=== PATIENT | female | born 1950 | race Caucasian/White ===

== ENCOUNTER 2018-02-04 00:37 | Observation (INO) | payer OTHER, MEDICARE ==
[~2018-02-04] VITALS: Ht 162.6 cm; Wt 87.8 kg
[2018-02-04] MEDS ORDERED: SODIUM CHLORIDE FLUSH 10ML SYR IVF ONE (01:00)
[2018-02-04] MEDS ORDERED: KETOROLAC 30 MG/1 ML IVPush ONE (01:00)
[2018-02-04] MEDS ORDERED: ONDANSETRON 2MG/ML, 2ML IVPush ONE (01:00)
[2018-02-04 01:01] LABS: BASOPHILS # (AUTO) 0.06 x10^3/uL (0-0.1); BASOPHILS % (AUTO) 1 % (0-1); EOSINOPHILS # (AUTO) 0.05 x10^3/uL (0-0.4); EOSINOPHILS % (AUTO) 0 % (1-7); LYMPHOCYTES # (AUTO) 1.78 x10^3/uL (1-3.4); LYMPHOCYTES % (AUTO) 14 % (22-44); MD NO; MEAN CORPUSCULAR HEMOGLOBIN 26.9 pg (27.0-34.8); MEAN CORPUSCULAR HGB CONC 33.8 g/dL (32.4-35.8); MEAN CORPUSCULAR VOLUME 79.5 fL (80-100); MEAN PLATELET VOLUME 9.5 fL (7.4-10.4); MONOCYTES # (AUTO) 0.42 x10^3/uL (0.2-0.8); MONOCYTES % (AUTO) 3 % (2-9); NEUTROPHILS # (AUTO) 10.67 x10^3/uL (1.8-6.8); NEUTROPHILS % (AUTO) 82 % (42-75); PLATELET COUNT 214 x10^3/uL (130-400); RED BLOOD COUNT 5.46 x10^6/uL (3.82-5.3); RED CELL DISTRIBUTION WIDTH 16.6 % (9.6-15.2)
[2018-02-04] MEDS ORDERED: KETOROLAC 30 MG/1 ML ONE (01:02)
[2018-02-04] MEDS ORDERED: ONDANSETRON 2MG/ML, 2ML ONE (01:02)
[2018-02-04] MEDS ORDERED: MORPHINE SULFATE 4 MG/ML, 1ML ONE ×2 (01:02→02:26)
[2018-02-04] MEDS: MORPHINE SULFATE 4 MG/ML, 1ML IVPush PRN ×2 (01:06→02:29)
[2018-02-04 01:12] LABS: ALANINE AMINOTRANSFERASE 25 U/L (12-78); ALBUMIN 3.6 g/dL (3.4-5.0); ANION GAP 10 mmol/L (5-15); CALCIUM 8.6 mg/dL (8.5-10.1); CHLORIDE 105 mmol/L (98-107); CREATININE 1.17 mg/dL (0.55-1.02)
[2018-02-04 01:15] LABS: ALKALINE PHOSPHATASE 122 U/L (45-117); BILIRUBIN,TOTAL 0.3 mg/dL (0.2-1.0); TOTAL PROTEIN 8.1 g/dL (6.4-8.2)
[2018-02-04 01:35] LABS: CULTURE INDICATED? NO; MICROSCOPIC NOT IND
[2018-02-04] MEDS ORDERED: HYDROcodone/APAP 5/325 TABLET ONE (02:27)
[2018-02-04] MEDS ORDERED: HYDROcodone/APAP 5/325 TABLET PO ONE (02:30)
[2018-02-04] MEDS ORDERED: PROMETHAZINE 25 MG/ML, 1ML IM PRN (04:00)
[2018-02-04] MEDS ORDERED: POLYETHYLENE GLYCOL 17 GM PACKET PO PRN (04:00)
[2018-02-04] MEDS ORDERED: METOCLOPRAMIDE 5 MG/ML, 2ML IVPush PRN ×2 (04:00→10:30)
[2018-02-04] MEDS ORDERED: ONDANSETRON 2MG/ML, 2ML IVPush PRN (04:00)
[2018-02-04] MEDS ORDERED: KETOROLAC 30 MG/1 ML IV PRN (04:00)
[2018-02-04] MEDS ORDERED: ACETAMINOPHEN 325 MG TABLET PO PRN (04:00)
[2018-02-04] MEDS ORDERED: PROMETHAZINE 25 MG/ML, 1ML ONE (04:15)
[2018-02-04] MEDS: SODIUM CHLORIDE 0.9% 1,000 ML IV SCH ×3 (05:59→20:02)
[2018-02-04] MEDS: HEPARIN 5,000 UNITS/ML, 1ML SQ SCH ×3 (06:00→21:37)
[2018-02-04] MEDS: HYDROmorphone 2 MG/ML, 1ML IVPush PRN ×2 (06:41→13:21)
[2018-02-04 07:17] LABS: BASOPHILS # (AUTO) 0.01 x10^3/uL (0-0.1); BASOPHILS % (AUTO) 0 % (0-1); EOSINOPHILS % (AUTO) 0 % (1-7); LYMPHOCYTES # (AUTO) 0.89 x10^3/uL (1-3.4); LYMPHOCYTES % (AUTO) 8 % (22-44); MD NO; MEAN CORPUSCULAR HGB CONC 32.6 g/dL (32.4-35.8); MEAN CORPUSCULAR VOLUME 79.8 fL (80-100); MEAN PLATELET VOLUME 9.1 fL (7.4-10.4); MONOCYTES # (AUTO) 0.28 x10^3/uL (0.2-0.8); MONOCYTES % (AUTO) 3 % (2-9); NEUTROPHILS # (AUTO) 9.62 x10^3/uL (1.8-6.8); NEUTROPHILS % (AUTO) 89 % (42-75); PLATELET COUNT 198 x10^3/uL (130-400); RED BLOOD COUNT 5.18 x10^6/uL (3.82-5.3); RED CELL DISTRIBUTION WIDTH 16.4 % (9.6-15.2)
[2018-02-04 07:28] LABS: ANION GAP 8 mmol/L (5-15); CALCIUM 8.2 mg/dL (8.5-10.1); CHLORIDE 105 mmol/L (98-107); CREATININE 1.06 mg/dL (0.55-1.02)
[2018-02-04 07:39] VITALS: BP 112/60
[2018-02-04 07:45] VITALS: BP 142/63
[2018-02-04] MEDS: FAMOTIDINE 20 MG/2 ML IVPush SCH ×2 (08:11→20:54)
[2018-02-04] MEDS: PROMETHAZINE MC SCH ×2 (10:16→20:00)
[2018-02-04] MEDS: METOCLOPRAMIDE MC SCH ×2 (10:16→20:00)
[2018-02-04 12:33] VITALS: BP 123/68
[2018-02-04 20:05] VITALS: BP 125/73
[2018-02-05 02:09] VITALS: BP 135/74
[2018-02-05] MEDS: SODIUM CHLORIDE 0.9% 1,000 ML IV SCH ×2 (02:12→11:00)
[2018-02-05] MEDS: METOCLOPRAMIDE MC SCH ×2 (04:00→12:00)
[2018-02-05] MEDS: PROMETHAZINE MC SCH ×2 (04:00→12:00)
[2018-02-05] MEDS: HEPARIN 5,000 UNITS/ML, 1ML SQ SCH (05:32)
[2018-02-05 05:33] LABS: BASOPHILS # (AUTO) 0.03 x10^3/uL (0-0.1); BASOPHILS % (AUTO) 0 % (0-1); EOSINOPHILS # (AUTO) 0.08 x10^3/uL (0-0.4); EOSINOPHILS % (AUTO) 1 % (1-7); LYMPHOCYTES # (AUTO) 2.51 x10^3/uL (1-3.4); LYMPHOCYTES % (AUTO) 30 % (22-44); MD NO; MEAN CORPUSCULAR HEMOGLOBIN 26.8 pg (27.0-34.8); MEAN CORPUSCULAR HGB CONC 33.2 g/dL (32.4-35.8); MEAN CORPUSCULAR VOLUME 80.7 fL (80-100); MEAN PLATELET VOLUME 9.9 fL (7.4-10.4); MONOCYTES % (AUTO) 8 % (2-9); NEUTROPHILS # (AUTO) 4.98 x10^3/uL (1.8-6.8); NEUTROPHILS % (AUTO) 60 % (42-75); PLATELET COUNT 159 x10^3/uL (130-400); RED BLOOD COUNT 4.54 x10^6/uL (3.82-5.3)
[2018-02-05 05:38] LABS: ANION GAP 7 mmol/L (5-15); CALCIUM 7.9 mg/dL (8.5-10.1); CHLORIDE 109 mmol/L (98-107); CREATININE 1.01 mg/dL (0.55-1.02)
[2018-02-05 07:54] VITALS: BP 126/64
[2018-02-05] MEDS: FAMOTIDINE 20 MG/2 ML IVPush SCH (09:00)
[2018-02-05] MEDS ORDERED: HYDR2TAB29 PO (11:28)
[2018-02-05] MEDS ORDERED: TRAM-47 PO (11:28)
[2018-02-05 12:15] VITALS: BP 139/78
== END 2018-02-05 12:41 | disposition home or self-care (01) ==
LOC: ED 02:33 → INTOOBSV 03:22 → EDIP 03:22 → 4NOR 04:37 → DCLOUNGE 02-05 12:24
PROVIDERS: ADMIT Hospitalist; ATTEND Internal Medicine
DX: N13.2 Hydronephrosis with renal and ureteral calculous obstruction (principal); R11.2 Nausea with vomiting, unspecified; K21.9 Gastro-esophageal reflux disease without esophagitis; E03.9 Hypothyroidism, unspecified; I10 Essential (primary) hypertension; K44.9 Diaphragmatic hernia without obstruction or gangrene; N28.1 Cyst of kidney, acquired; Z87.442 Personal history of urinary calculi
CPT/HCPCS: 36415; 74176; 76770; 76775; 80048; 80053; 81003; 83690; 83735; 84100; 85025; 96361; 96372; 96374; 96375; 96376; 99285; G0378; J1170; J1644; J1885; J2405; J2550; J3490; J7030

== ENCOUNTER 2019-07-10 11:44 | Emergency (ER) | payer MEDICARE, OTHER ==
[~2019-07-10] VITALS: Ht 162.6 cm; Wt 84.3 kg
[~2019-07-10 11:44] MED LIST: HYDR2TAB29 PO; TRAM-47 PO
[2019-07-10] MEDS ORDERED: SODIUM CHLORIDE 0.9% 1,000 ML IV ONE (12:06)
[2019-07-10] MEDS ORDERED: ACETAMINOPHEN 500 MG TABLET ONE (12:10)
--- NOTE | 2019-07-10 12:29 | NUR ---
dry cough x10 days, was swabbed for covid at . was noted to have irreg heart rhtyhm at . PACs, PVCs noted, nsr, 100s. low grade temp. lungs ctab. denies runny nose. c/o sore throat r/t coughing. no sob/cp. labs/piv/meds per may. [facility] was in room. a&ox4 gcs 15. nad. call de jesus in reach. as
[2019-07-10] MEDS ORDERED: SODIUM CHLORIDE FLUSH 10ML SYR IVF ONE (12:30)
[2019-07-10] MEDS ORDERED: ACETAMINOPHEN 500 MG TABLET PO ONE (12:30)
[2019-07-10] MEDS ORDERED: SODIUM CHLORIDE 0.9% 1,000ML IVBOLUS ONE (12:30)
[2019-07-10 12:38] LABS: BASOPHILS # (AUTO) 0.01 x10^3/uL (0-0.1); BASOPHILS % (AUTO) 0 % (0-1); EOSINOPHILS # (AUTO) 0.01 x10^3/uL (0-0.4); EOSINOPHILS % (AUTO) 0 % (1-7); LYMPHOCYTES # (AUTO) 1.06 x10^3/uL (1-3.4); LYMPHOCYTES % (AUTO) 23 % (22-44); MD NO; MEAN CORPUSCULAR HEMOGLOBIN 25.9 pg (27.0-34.8); MEAN CORPUSCULAR HGB CONC 33.2 g/dL (32.4-35.8); MEAN CORPUSCULAR VOLUME 78.2 fL (80-100); MEAN PLATELET VOLUME 10.4 fL (7.4-10.4); MONOCYTES % (AUTO) 7 % (2-9); NEUTROPHILS # (AUTO) 3.19 x10^3/uL (1.8-6.8); NEUTROPHILS % (AUTO) 70 % (42-75); PLATELET COUNT 123 x10^3/uL (130-400); RED BLOOD COUNT 6.07 x10^6/uL (3.82-5.3); RED CELL DISTRIBUTION WIDTH 16.2 % (9.6-15.2)
[2019-07-10 12:49] LABS: ALBUMIN 3.3 g/dL (3.4-5.0); ANION GAP 9 mmol/L (5-15); CALCIUM 8.3 mg/dL (8.5-10.1); CHLORIDE 104 mmol/L (98-107)
[2019-07-10 12:54] LABS: ALANINE AMINOTRANSFERASE 37 U/L (12-78); ALKALINE PHOSPHATASE 111 U/L (45-117); BILIRUBIN,TOTAL 0.4 mg/dL (0.2-1.0); CREATININE 0.96 mg/dL (0.55-1.02); TROPONIN I < 0.015 ng/mL (0.000-0.045)
--- NOTE | 2019-07-10 13:34 | NUR ---
Silke decker in [facility] - 07/10/19 at 1335 by ISAIAH cecilia. as
[2019-07-10] MEDS ORDERED: POTASSIUM CHLORIDE 20 MEQ TAB.ER.PRT PO ONE (14:00)
[2019-07-10 14:07] VITALS: BP 140/73
--- NOTE | 2019-07-10 14:08 | NUR ---
o2 removed. watching pt. 92-93% on RA after pulse ox moved to ear lobe. as
[2019-07-10] MEDS ORDERED: POTASSIUM CHLORIDE 20 MEQ TAB.ER.PRT ONE (14:09)
== END 2019-07-10 14:29 | disposition home or self-care (01) ==
LOC: ED 12:56
DX: E87.6 Hypokalemia (principal); K44.9 Diaphragmatic hernia without obstruction or gangrene; R50.9 Fever, unspecified; R00.0 Tachycardia, unspecified; I10 Essential (primary) hypertension; E86.0 Dehydration
CPT/HCPCS: 36415; 71045; 80053; 83605; 83880; 84484; 85025; 87040; 93005; 96360; 96361; 99285; J7030